=== PATIENT | female | born 1965 | race American Indian/Alaskan Native ===

== ENCOUNTER 2018-04-05 13:19 | Outpatient (CLI) | payer BC | END 2018-04-05 13:20 | disposition home or self-care (01) | LOC: C.DIABED 13:19 | DX: Z71.3 Dietary counseling and surveillance (principal); Z68.41 Body mass index [BMI] 40.0-44.9, adult ==

== ENCOUNTER 2018-04-26 13:20 | Outpatient (CLI) | payer BC | END 2018-04-26 13:21 | disposition home or self-care (01) | LOC: C.DIABED 13:20 | DX: Z68.41 Body mass index [BMI] 40.0-44.9, adult (principal) ==

== ENCOUNTER 2018-05-15 11:14 | Outpatient (CLI) | payer BC | END 2018-05-15 11:15 | disposition home or self-care (01) | LOC: C.DIABED 11:14 ==

== ENCOUNTER 2018-06-05 13:47 | Outpatient (CLI) | payer BC | END 2018-06-05 13:48 | disposition home or self-care (01) | LOC: C.DIABED 13:47 ==

== ENCOUNTER 2018-06-26 13:45 | Outpatient (CLI) | payer BC | END 2018-06-26 13:46 | disposition home or self-care (01) | LOC: C.DIABED 13:45 ==

== ENCOUNTER 2018-07-24 13:37 | Outpatient (CLI) | payer BC | END 2018-07-24 13:38 | disposition home or self-care (01) | LOC: C.DIABED 13:37 ==